=== PATIENT | female | born 1970 | race Caucasian/White ===

== ENCOUNTER 2020-04-30 11:32 | Emergency (ER) | payer BC ==
[2020-04-30] MEDS ORDERED: KETOROLAC 60 MG/2 ML VIAL IM STA (12:06)
[2020-04-30] MEDS ORDERED: ORPHENADRINE 30 MG/ML 2 ML VIAL IM STA (12:07)
--- NOTE | 2020-04-30 12:11 | ED ---
Neck Injury/Pain HPI - General Chief Complaint: Neck Pain/Injury Stated Complaint: pinched nerve Time Seen by Provider: 04/30/20 11:44 Mode of arrival: ambulatory Limitations: no limitations - History of Present Illness Initial Comments: Patient is a 49-year-old female presenting to the emergency Department with complaints of right sided neck pain as well as been increasing over the past 5 days. Patient states she did not have any specific injury or trauma. She states she woke up one morning with a slight pinching feeling in the right side of her neck which has progressed over the last few days. She has been seeing her chiropractor who has been doing some adjustments, did do an x-ray yesterday with no acute findings. Patient states she was unable to sleep last night secondary to the pain and stiffness. She has tried [id number] medications with his Tylenol and ibuprofen without relief of symptoms. She is also been trying heat and gentle massage to the area. She denies any previous neck surgeries or injuries. She denies any fever or chills. She denies any numbness and tingling into her upper extremities. She has no further complaints at this time. Upon arrival to the ER, her vitals are stable. - Related Data Previous Rx's Medication Instructions Recorded Cyclobenzaprine [Flexeril] 5 mg PO BID PRN #10 tablet 04/30/20 predniSONE 10 mg PO BID 5 Days #10 tab 04/30/20 Allergies Allergy/AdvReac Type Severity Reaction Status Date / Time Sulfa (Sulfonamide Allergy Rash/Hives Verified 04/30/20 11:38 Antibiotics) Review of Systems ROS Statement: Those systems with pertinent positive or pertinent negative responses have been documented in the HPI. ROS Other: All systems not noted in ROS Statement are negative. Past Medical History Past Medical History: No Reported History Past Surgical History: No Surgical Hx Reported Smoking Status: Never smoker Past Alcohol Use History: Occasional Past Drug Use History: Marijuana General Exam - General Exam Comments Initial Comments: GENERAL: Patient is well-developed and well-nourished. Patient is nontoxic and in no acute distress. HEAD: Atraumatic, normocephalic. EYES: Pupils equal round and reactive to light, extraocular movements intact, sclera anicteric, conjunctiva are normal. Eyelids were unremarkable. ENT: TMs normal, nares patent, oropharynx clear without exudates. Moist mucous membranes. NECK: Supple without lymphadenopathy or JVD. Decreased cervical range of motion secondary to tightness. Pain with palpation along the right upper trapezius, cervical paraspinals. LUNGS: Unlabored respirations. Breath sounds clear to auscultation bilaterally and equal. No wheezes rales or rhonchi. HEART: Regular rate and rhythm without murmurs, rubs or gallops. ABDOMEN: Soft, nontender, normoactive bowel sounds. No guarding, no rebound. No masses appreciated. : Deferred MUSCULOSKELETAL: Normal extremities with adequate strength and normal range of motion, no pitting or edema. No clubbing or cyanosis. NEUROLOGICAL: Patient is alert and oriented x 3. Motor and sensory are also intact. Cranial nerves II through XII grossly intact. Normal speech, normal gait. Symmetrical smile. PSYCH: Normal mood, normal affect. SKIN: Warm, Dry, normal turgor, no rashes or lesions noted. Limitations: no limitations Course Vital Signs 04/30/20 04/30/20 11:32 12:54 Temperature 97.8 F 98.4 F Pulse Rate 84 72 Respiratory 18 16 Rate Blood Pressure 127/80 115/75 O2 Sat by Pulse 99 96 Oximetry Medical Decision Making - Medical Decision Making Patient is a 49-year-old female here for right-sided neck pain. Patient's exam is consistent with muscle skeletal pain on the right side of her neck. There is no other injuries or trauma. Patient was given IM Toradol and Norflex today. I recommended continue with heat, gentle massage and we will add and a muscle relaxer as well as a low-dose steroid to help improve her symptoms. If symptoms persist and recommend following up with her PCP or orthopedics. Patient is agreement with this plan of care. Return parameters were discussed with the patient she verbalized understanding. Case discussed with Dr. Russ. Disposition Clinical Impression: Strain of neck muscle Disposition: HOME SELF-CARE Condition: Stable Instructions (If sedation given, give patient instructions): Cervical Strain (ED) Additional Instructions: Please return to the Emergency Department if symptoms worsen or any other c oncerns. Take medications as prescribed. Continue alternating between heat and/or ice. Follow-up with PCP or orthopedics if symptoms persist. Prescriptions: Cyclobenzaprine [Flexeril] 5 mg PO BID PRN #10 tablet PRN Reason: Muscle Spasm predniSONE 10 mg PO BID 5 Days #10 tab Is patient prescribed a controlled substance at d/c from ED?: No Referrals: Hung Perea MD [Primary Care Provider] - 1-2 days Erick Conner MD [STAFF PHYSICIAN] - 1-2 days
[2020-04-30] MEDS ORDERED: ACET/COD 300 MG/30 MG STARTER PACK 6 TAB BTL PO STA (12:42)
[2020-04-30 12:56] VITALS: BP 115/75; PULSE 72; RESP 16; TEMP 98.4
== END 2020-04-30 12:54 | disposition home or self-care (01) ==
LOC: SUPCPDRO 11:32 → EC 11:32
DX: S16.1XXA Strain of muscle, fascia and tendon at neck level, initial encounter (principal); Z88.2 Allergy status to sulfonamides; X58.XXXA Exposure to other specified factors, initial encounter
CPT/HCPCS: 99283; 96372 ×2; J2360; J1885

== ENCOUNTER 2020-09-25 11:55 | Emergency (ER) | payer BC ==
[2020-09-25 12:06] VITALS: BP 121/77; PULSE 77; RESP 18; TEMP 98.3
--- NOTE | 2020-09-25 12:30 | ED ---
Upper Extremity HPI - General Chief Complaint: Extremity Injury, Upper Stated Complaint: R Arm Pain/Injury Time Seen by Provider: 09/25/20 12:07 Source: patient Mode of arrival: ambulatory Limitations: no limitations - History of Present Illness Initial Comments: Patient is a 50-year-old female presenting to emergency Department with complaints of right arm pain for the last few days. Patient states while she was in [place] 5 days ago, she had a fall on a chair. Patient states she had bruising to both of her forearms. Patient states her left forearm seems to be healing well however there has been a bump on her right forearm that is getting bigger, it is painful to the touch and at nighttime her arm seems to be swelling more and becoming more red. Patient denies having an abrasion and an area. She states she is able to use her right hand as normal. She states she has fears of a possible blood clot. She denies history of blood clots, she is not on any blood thinners. Patient denies any other injuries from this fall. She denies history of fever, chills, nausea, vomiting, chest pain or shortness of breath. She has no further complaints at this time. Upon arrival to the ER, her vitals are stable. - Related Data Previous Rx's Medication Instructions Recorded Cyclobenzaprine [Flexeril] 5 mg PO BID PRN #10 tablet 04/30/20 predniSONE 10 mg PO BID 5 Days #10 tab 04/30/20 Cephalexin [Keflex] 500 mg PO Q6HR 7 Days #28 cap 09/25/20 Allergies Allergy/AdvReac Type Severity Reaction Status Date / Time Sulfa (Sulfonamide Allergy Rash/Hives Verified 09/25/20 12:06 Antibiotics) Review of Systems ROS Statement: Those systems with pertinent positive or pertinent negative responses have been documented in the HPI. ROS Other: All systems not noted in ROS Statement are negative. Past Medical History Past Medical History: No Reported History Past Surgical History: No Surgical Hx Reported Past Psychological History: No Psychological Hx Reported Smoking Status: Never smoker Past Alcohol Use History: Occasional Past Drug Use History: Marijuana General Exam - General Exam Comments Initial Comments: GENERAL: Patient is well-developed and well-nourished. Patient is nontoxic and in no acute distress. HEAD: Atraumatic, normocephalic. EYES: Pupils equal round and reactive to light, extraocular movements intact, sclera anicteric, conjunctiva are normal. Eyelids were unremarkable. ENT: TMs normal, nares patent, oropharynx clear without exudates. Moist mucous membranes. NECK: Normal range of motion, supple without lymphadenopathy or JVD. LUNGS: Unlabored respirations. Breath sounds clear to auscultation bilaterally and equal. No wheezes rales or rhonchi. HEART: Regular rate and rhythm without murmurs, rubs or gallops. ABDOMEN: Soft, nontender, normoactive bowel sounds. No guarding, no rebound. No masses appreciated. : Deferred MUSCULOSKELETAL: Patient has some mild pain with palpation of the right forearm, palmar aspect, there is a moderate sized bump in the middle of the forearm, there is some mild erythema over the area, this bump is painful to the touch. She does have some mild warmth to the area as well. She does have full range of motion of the right hand, wrist and forearm. She is neurovascular intact. No clubbing or cyanosis. NEUROLOGICAL: Patient is alert and oriented x 3. Motor and sensory are also intact. Normal speech, normal gait. PSYCH: Normal mood, normal affect. SKIN: Warm, Dry, normal turgor, no rashes or lesions noted. Limitations: no limitations Course Vital Signs 09/25/20 12:01 Temperature 98.3 F Pulse Rate 77 Respiratory 18 Rate Blood Pressure 121/77 O2 Sat by Pulse 98 Oximetry Medical Decision Making - Medical Decision Making Patient is a 50-year-old female here with pain, swelling of her right forearm after falling out of 5 days ago. Her vital signs are stable, her right forearm does have an enlarged lump in the middle of the forearm, palmar aspect that seems to be painful to the touch, about 3 cm in diameter, some mild erythema present. X-ray of the right forearm reveal no acute fractures or complications. I did order an ultrasound of the arm, no evidence of an abscess, no DVT. Discussed these findings with the patient. I will start patient on Keflex for cellulitis. She also has an appointment with her physician tomorrow. Return parameters were discussed with the patient she verbalized understanding. Case discussed with Dr. Mixon. Disposition Clinical Impression: Right forearm pain, Right arm cellulitis Disposition: HOME SELF-CARE Condition: Stable Instructions (If sedation given, give patient instructions): Cellulitis (ED) Additional Instructions: Please return to the Emergency Department if symptoms worsen or any other concerns. X-ray and ultrasound today are normal. Take antibiotic as prescribed. Follow-up with your regular doctor. Prescriptions: Cephalexin [Keflex] 500 mg PO Q6HR 7 Days #28 cap Is patient prescribed a controlled substance at d/c from ED?: No Referrals: Hung Perea MD [Primary Care Provider] - 1-2 days
--- NOTE | 2020-09-25 13:01 | XR ---
EXAMINATION TYPE: XR forearm RT DATE OF EXAM: 09/25/2020 COMPARISON: None HISTORY: Fall 5 days prior TECHNIQUE: 2 view right forearm FINDINGS: No acute fracture or dislocation is evident. Mild soft tissue prominence is present. IMPRESSION: 1. Acute or subacute fractures evident.
--- NOTE | 2020-09-25 13:16 | US ---
EXAMINATION TYPE: US extremity nonvasc mass RT DATE OF EXAM: 09/25/2020 COMPARISON: NONE CLINICAL HISTORY: pain, swelling, redness right forearm, fall 5 days. Lump and redness right forearm. No abnormalities seen vessels in area of lump are compressing. IMPRESSION: 1. No discrete abnormality by ultrasound within the soft tissues. If additional evaluation is require d, consider CT or MRI.
== END 2020-09-25 13:39 | disposition home or self-care (01) ==
LOC: EC 11:55
DX: L03.113 Cellulitis of right upper limb (principal); W18.30XA Fall on same level, unspecified, initial encounter; Z88.2 Allergy status to sulfonamides
CPT/HCPCS: 99284